=== PATIENT | male | born 1940 | race Caucasian/White ===

== ENCOUNTER → 2016-09-25 | Outpatient (CLI) | payer MEDICARE, OTHER ==
[~2016-09-25] MED LIST: ASPIRIN LO-DOSE81 MG PO; BRILINTA90 MG PO; LIPITOR80 MG PO; LOPRESSOR25 MG PO; PRILOSEC20 MG PO; PRINIVIL (ZESTRI5 MG PO
[2016-09-25 18:22] LABS: BASOPHIL # 0.1 K/uL (0.0-0.2); BASOPHIL % 0.6 %; EOSINOPHIL # 0.2 K/uL (0.0-0.5); EOSINOPHIL % 2.3 %; HEMOGLOBIN 14.4 g/dL (11.0-16.0); IMMATURE GRANULOCYTE % 0.3 %; LYMPHOCYTE # 1.9 K/uL (0.8-4.0); LYMPHOCYTE % 24.6 %; MCH 29.1 pg (27.0-34.0); MCHC 31.3 gm/dL (32.0-36.5); MCV 92.9 fl (83.0-98.0); MONOCYTE # 0.8 K/uL (0.0-1.0); MONOCYTE % 10.6 %; MPV 10.9 fl (9.4-12.4); NEUTROPHIL # (ANC) 4.8 K/uL (1.4-9.0); NEUTROPHIL % 61.6 %; NRBC % 0 /100WBC (0-0.00); PLATELET COUNT 279 K/uL (150-450); RBC 4.95 M/uL (3.50-5.50); RDW-CV 14.4 % (11.9-14.6); WBC 7.9 K/uL (4.0-11.0)
[2016-09-25 18:50] LABS: ALBUMIN 3.6 gm/dL (3.5-5.0); ALK PHOS 82 IU/L (33-138); ALT 27 IU/L (12-78); ANION GAP 16.5 (10.0-19.0); AST 22 IU/L (10-40); BLOOD UREA NITROGEN 16 mg/dL (6-24); CALCIUM 8.7 mg/dL (8.5-10.5); CHLORIDE 107 mMol/L (96-110); CO2 24 mMol/L (22-32); ESTIMATED GFR (MDRD EQUATION) > 60; POTASSIUM 4.5 mMol/L (3.7-5.1); SODIUM 143 mMol/L (135-145); TOTAL BILIRUBIN 0.5 mg/dL (0.0-1.5); TOTAL PROTEIN 6.5 g/dL (6.0-8.4)
== END | disposition disaster alternative care site (69) ==
LOC: LNHI 18:17
PROVIDERS: Internal Medicine Cardiovascular Disease
DX: I25.10 Atherosclerotic heart disease of native coronary artery without angina pectoris (principal)